=== PATIENT | male | born 1970 | race Caucasian/White ===

== ENCOUNTER 2024-11-27 12:20 | Day surgery (SDC) | payer BC, OTHER ==
[~2024-11-27] VITALS: Ht 175.3 cm; Wt 105.8 kg
[2024-11-27 14:32] VITALS: BP 126/82
== END 2024-11-27 14:25 | disposition home or self-care (01) ==
LOC: ORSCSDS 12:20
PROVIDERS: Surgery
PROC: 0DBM8ZX Excision of Descending Colon, Via Natural or Artificial Opening Endoscopic, Diagnostic (ICD-10-PCS; principal; 2024-11-27 14:00)
DX: Z12.11 Encounter for screening for malignant neoplasm of colon (principal); Z86.0100 Personal history of colon polyps, unspecified; D12.3 Benign neoplasm of transverse colon; K64.8 Other hemorrhoids; A63.0 Anogenital (venereal) warts; K57.30 Diverticulosis of large intestine without perforation or abscess without bleeding; Z72.0 Tobacco use; K64.0 First degree hemorrhoids; E66.09 Other obesity due to excess calories; Z68.35 Body mass index [BMI] 35.0-35.9, adult
CPT/HCPCS: 88305; J2704; J7120